=== PATIENT | female | born 1995 | race Caucasian/White ===

== ENCOUNTER 2019-06-23 16:04 | Outpatient (CLI) | payer BC ==
--- NOTE | 2019-06-23 16:40 | RAD ---
XR Scoliosis Study History: Scoliosis. M54.5 low back pain Comparison: None. Findings: Mild S-shaped scoliosis thoracolumbar spine. There is dextroscoliosis thoracic spine of 17 degrees measured from the inferior endplate of T6 to the inferior endplate of T12. There is levoscoliosis of the lumbar spine of 17 degrees measured from the inferior endplate of T12 t o the inferior endplate of L4. No acute fracture. No malalignment. Paraspinal soft tissues are unremarkable. Impression: Mild-moderate S-shaped scoliosis thoracolumbar spine as described.
== END 2019-06-23 16:05 | disposition home or self-care (01) ==
LOC: SCSRAD 16:04
PROVIDERS: ATTEND Nurse Practitioner Family
DX: M54.5 Low back pain (principal); M41.9 Scoliosis, unspecified
CPT/HCPCS: 72081

== ENCOUNTER 2019-11-16 14:02 | Outpatient (CLI) | payer BC ==
--- NOTE | 2019-11-16 14:21 | RAD ---
Exam: XR Ankle Lt 3 View STANDARD HISTORY: Lateral left ankle pain. COMPARISON: None FINDINGS: No acute fracture, dislocation, or other acute osseous abnormality is identified. IMPRESSION: No acute osseous abnormality is identified. If symptoms persist, follow-up imaging is advised.
--- NOTE | 2019-11-16 14:22 | RAD ---
Exam: XR Foot Lt 3 View STANDARD HISTORY: Left foot pain. Patient states pain at fifth metatarsal. COMPARISON: None FINDINGS: Lisfranc joint is normally aligned. No acute fracture, dislocation, or other acute osseous abnormality is identified. IMPRESSION: No acute osseous abnormality is identified. If symptoms persist, follow-up imaging is advised.
== END 2019-11-16 14:03 | disposition home or self-care (01) ==
LOC: BICRAD 14:02
PROVIDERS: ATTEND Physician Assistant
DX: M25.572 Pain in left ankle and joints of left foot (principal); M79.672 Pain in left foot